=== PATIENT | female | born 1950 | race Caucasian/White ===

== ENCOUNTER 2018-02-11 20:27 | Inpatient (IN) | payer SELFPAY ==
[~2018-02-11] VITALS: Ht 154.9 cm; Wt 42.3 kg
--- NOTE | ~2018-02-11 | EKG ---
[place], [place] ELECTROCARDIOGRAM REPORT NAME: RADHA LUND UNIT #: [id number] ROOM: 403 DOCTOR: TRANG DRAFT REPORT BIRTHDATE: [birth year] [facility] Test Date: 2018-02-11 Test Time: 23:12:36 Pat Name: RADHA LUND Department: Room: 403 Gender: F Getterer: SONDRA : 1950 Requested By: HALINA MATA Order Number: [id number] Reading MD: Angel Maravilla MD Measurements Intervals [place] Rate: 79 P: 76 MD: 176 QRS: 33 QRSD: 70 T: 64 QT: 390 QTc: 448 Interpretive Statements Sinus rhythm Consider right atrial enlargement Borderline low voltage, extremity leads Electronically Signed On 02-12-2018 8:31:10 PDT by Agnel Maravilla MD CM:EKGRPT:ELECTROCARDIOGRAM REPORT 2312 [id number] HALINA STERN DRAFT REPORT HALINA MATA DO
--- NOTE | ~2018-02-11 | O ---
[place], [place] OPERATIVE NOTE NAME: RAD[facility] LUND [facility] #: [id number] UNIT #: [id number] ROOM: 403 DOCTOR: BOBO MATUTE DO BIRTHDATE: [birth year] DOS: 02/12/2018 PREOPERATIVE DIAGNOSIS: Right subcapital hip fracture. POSTOPERATIVE DIAGNOSIS: Right subcapital hip fracture. OPERATIVE PROCEDURE: Right subcapital hip fracture in situ fixation. SURGEON: Bobo Matute DO. BLOW MOLDING MACHINE TENDER: Eligio. ANESTHESIA: EDWIN Rizzo. Spinal. INDICATIONS: The patient is a 67-year-old female who was reported to have fallen at her home and suffered a right subcapital femoral neck fracture. The risks and benefits of the procedure were explained to the patient preoperatively. Preoperative labs and x-rays were obtained. Medical optimization was performed. The right hip was marked in the holding area. The patient was brought to the operative suite. Spinal anesthetic was performed by Anesthesia. The patient was placed supine on the fracture table. The right lower extremity was extended with minimal traction. The left lower extremity was flexed and externally rotated. The C-arm was utilized to evaluate the fracture site in multiple planes. The right lower extremity was prepped and draped in the usual orthopedic manner. A timeout was performed. The patient received clindamycin 900 mg IV piggyback. C-arm was used to identify the region just distal to the greater trochanter. The area was injected with Marcaine 0.5% with epinephrine. A 3 cm incision was made. Subcutaneous tissue was spread down to the level of the tensor fascia chantell. This was divided longitudinally as was the vastus lateralis. Under C-arm guidance, three partially threaded guidewires were placed from lateral to medial through the femoral neck and into the head. When this was found to be adequate, the lengths were measured of each guidewire. The guidewires were each overdrilled with a cannulated drill bit. This was followed by placement of three 7.3 mm cannulated screws, measuring 85 mm, 85 mm, 80 mm. When this was completed, C-arm images were obtained in multiple planes. The hip was taken through a range of motion. When this was adequate, the area was copiously irrigated with normal saline. The incision was closed with 0 Vicryl at the fascial layers followed by 2-0 Vicryl and skin brodie. The area was again injected with Marcaine 0.5% with epinephrine. Xeroform, 4 x 4s, and Tegaderm were applied as a dressing. The patient was returned to her hospital bed and taken to the recovery room in satisfactory condition. Sponge and needle count correct. ESTIMATED BLOOD LOSS: 25 mL. [place], [place] OPERATIVE NOTE NAME: RADHA LUND UNIT #: [id number] ROOM: [facility] DOCTOR: BOBO MATUTE DO BIRTHDATE: [birth year] FINDINGS: Subcapital fracture of the right femoral neck. IMPLANTS: Synthes 7.3 mm cannulated screws measuring 85 mm, 85 mm and 80 mm. COMPLICATIONS: None. SPECIMENS: None. DRAIN AND PACKING: None. BOBO MATUTE DO CM:OPRECORD:OPERATIVE NOTE 1415 [id number] BOBO MATUTE DO 02/25/18 0721 interface
[2018-02-11] MEDS ORDERED: CYMBALTA30 MG PO (20:51)
[2018-02-11] MEDS ORDERED: ULTRAM50 MG PO (20:52)
[2018-02-11] MEDS ORDERED: TIZANIDINE HCL4 MG PO (20:53)
[2018-02-11] MEDS ORDERED: NORVASC5 MG PO (20:53)
[2018-02-11] MEDS ORDERED: NEURONTIN300 MG PO (20:54)
[2018-02-11] MEDS ORDERED: LOPRESSOR50 M1 PO (20:54)
[2018-02-11] MEDS ORDERED: LOVASTATIN40 MG PO (20:55)
[2018-02-11 21:54] VITALS: BP 165/92
[2018-02-11 23:34] LABS: BASO % 0.3 % (0.0-1.0); EOS % 0.1 % (1.0-4.0); HEMATOCRIT 43.4 % (37.0-47.0); HEMOGLOBIN 14.5 g/dl (12.0-16.0); LYMPH # 1.3 10*3/uL (1.3-4.4); LYMPH % 10.7 % (27.0-41.0); MEAN CELL VOLUME 96.2 fl (81.0-99.0); MEAN CORPUSCULAR HGB 32.2 pg (27.0-31.0); MEAN CORPUSCULAR HGB CONC 33.4 g/dl (33.0-37.0); MEAN PLATELET VOLUME 9.2 fl (9.6-12.3); MONO # 0.5 10*3/uL (0.1-1.0); MONO % 3.8 % (3.0-9.0); NEUT % 84.8 % (47.0-73.0); PLATELET COUNT AUTOMATED 325 10*3/uL (130-400); RED BLOOD COUNT 4.51 10*6/uL (4.10-5.10); RED CELL DISTRI WIDTH 13.1 % (0-14.5); WHITE BLOOD COUNT 11.7 10*3/uL (4.8-10.8)
[2018-02-11 23:36] VITALS: BP 185/82
[2018-02-11 23:54] LABS: ALBUMIN 3.8 gm/dl (3.1-4.5); ALKALINE PHOSPHATASE 70 U/L (45-117); BUN 10 mg/dl (7-24); CHLORIDE 101 mmol/L (98-107); CREATININE 0.75 mg/dL (0.55-1.02); POTASSIUM 3.9 mmol/L (3.5-5.1); SGOT/AST 29 IU/L (3-35); SGPT/ALT 30 U/L (12-78); SODIUM 134 mmol/L (136-145); TOTAL PROTEIN 7.6 gm/dL (6.4-8.2)
[2018-02-11 23:55] LABS: TROPONIN I < 0.015 ng/ml (<0.045)
[2018-02-12] VITALS (10 sets, daily range): BP systolic 99–150; BP diastolic 38–90
[2018-02-12 05:02] LABS: BILIRUBIN NEGATIVE (NEGATIVE); BLOOD 3+ (NEGATIVE); CLARITY CLEAR (CLEAR); COLOR YELLOW (YELLOW); GLUCOSE NEGATIVE (NEGATIVE); KETONE 1+ (NEGATIVE); LEUKO ESTERASE TRACE (NEGATIVE); NITRITE NEGATIVE (NEGATIVE); PH 6.5 (5.0-9.0); SPECIFIC GRAVITY <= 1.005 (1.005-1.030); UROBILINOGEN 0.2 E.U./dl (0.2-1.0)
[2018-02-12 05:08] LABS: RBC TNTC rbc/hpf (0-2)
[2018-02-13] VITALS: BP 163/84
[2018-02-13 00:50] VITALS: BP 140/72
[2018-02-13 06:16] LABS: BASO % 0.2 % (0.0-1.0); EOS # 0.1 10*3/uL (0.0-0.4); EOS % 1.1 % (1.0-4.0); HEMATOCRIT 38.3 % (37.0-47.0); HEMOGLOBIN 12.5 g/dl (12.0-16.0); LYMPH # 1.6 10*3/uL (1.3-4.4); LYMPH % 20.2 % (27.0-41.0); MEAN CORPUSCULAR HGB 31.6 pg (27.0-31.0); MEAN CORPUSCULAR HGB CONC 32.6 g/dl (33.0-37.0); MEAN PLATELET VOLUME 9.7 fl (9.6-12.3); MONO # 0.7 10*3/uL (0.1-1.0); MONO % 8.4 % (3.0-9.0); NEUT # 5.7 10*3/uL (2.3-7.9); NEUT % 69.9 % (47.0-73.0); PLATELET COUNT AUTOMATED 302 10*3/uL (130-400); RED BLOOD COUNT 3.95 10*6/uL (4.10-5.10); RED CELL DISTRI WIDTH 13.2 % (0-14.5); WHITE BLOOD COUNT 8.1 10*3/uL (4.8-10.8)
[2018-02-13 06:37] LABS: BUN 9 mg/dl (7-24); CHLORIDE 104 mmol/L (98-107); POTASSIUM 3.5 mmol/L (3.5-5.1); SODIUM 138 mmol/L (136-145)
[2018-02-13 07:10] LABS: VITAMIN D, 25-HYDROXY 6.9 ng/mL (30-100)
[2018-02-13 07:20] LABS: CHOLESTEROL 124 mg/dL (<200); CREATININE 0.78 mg/dL (0.55-1.02); FREE T4 1.12 ng/dl (0.76-1.46); HDL CHOLESTEROL 50 mg/dl (40-60); LDL CHOLESTEROL 50 mg/dL (9-159); PHOSPHOROUS 3.2 mg/dL (2.5-4.9); TRIGLYCERIDES 118 mg/dl (<150); VLDL CHOLESTEROL 24 mg/dL (6-40)
[2018-02-13 08:00] VITALS: BP 138/60
[2018-02-13 12:00] VITALS: BP 102/63
[2018-02-13 16:00] VITALS: BP 141/69
[2018-02-13 20:00] VITALS: BP 100/70
[2018-02-14] VITALS: BP 114/65
[2018-02-14 06:45] LABS: BASO % 0.4 % (0.0-1.0); EOS # 0.3 10*3/uL (0.0-0.4); EOS % 4.7 % (1.0-4.0); HEMATOCRIT 35.7 % (37.0-47.0); HEMOGLOBIN 11.6 g/dl (12.0-16.0); LYMPH # 1.8 10*3/uL (1.3-4.4); MEAN CELL VOLUME 97.3 fl (81.0-99.0); MEAN CORPUSCULAR HGB 31.6 pg (27.0-31.0); MEAN CORPUSCULAR HGB CONC 32.5 g/dl (33.0-37.0); MEAN PLATELET VOLUME 9.5 fl (9.6-12.3); MONO # 0.7 10*3/uL (0.1-1.0); NEUT # 4.2 10*3/uL (2.3-7.9); NEUT % 58.8 % (47.0-73.0); PLATELET COUNT AUTOMATED 278 10*3/uL (130-400); RED BLOOD COUNT 3.67 10*6/uL (4.10-5.10); RED CELL DISTRI WIDTH 13.2 % (0-14.5); WHITE BLOOD COUNT 7.1 10*3/uL (4.8-10.8)
[2018-02-14 07:09] LABS: ALBUMIN 2.6 gm/dl (3.1-4.5); ALKALINE PHOSPHATASE 50 U/L (45-117); BUN 4 mg/dl (7-24); CHLORIDE 106 mmol/L (98-107); CREATININE 0.62 mg/dL (0.55-1.02); POTASSIUM 3.2 mmol/L (3.5-5.1); SGOT/AST 22 IU/L (3-35); SGPT/ALT 20 U/L (12-78); SODIUM 140 mmol/L (136-145); TOTAL PROTEIN 5.7 gm/dL (6.4-8.2)
[2018-02-14 08:00] VITALS: BP 119/62
[2018-02-14 12:00] VITALS: BP 106/56
[2018-02-14 16:00] VITALS: BP 127/62
[2018-02-14 20:00] VITALS: BP 139/70
[2018-02-15] VITALS: BP 100/69
[2018-02-15 06:12] LABS: BASO % 0.4 % (0.0-1.0); EOS # 0.5 10*3/uL (0.0-0.4); EOS % 6.1 % (1.0-4.0); HEMATOCRIT 35.6 % (37.0-47.0); HEMOGLOBIN 11.6 g/dl (12.0-16.0); LYMPH # 1.8 10*3/uL (1.3-4.4); LYMPH % 22.2 % (27.0-41.0); MEAN CELL VOLUME 97.3 fl (81.0-99.0); MEAN CORPUSCULAR HGB 31.7 pg (27.0-31.0); MEAN CORPUSCULAR HGB CONC 32.6 g/dl (33.0-37.0); MEAN PLATELET VOLUME 9.8 fl (9.6-12.3); MONO # 0.8 10*3/uL (0.1-1.0); MONO % 9.7 % (3.0-9.0); NEUT # 4.9 10*3/uL (2.3-7.9); NEUT % 61.3 % (47.0-73.0); PLATELET COUNT AUTOMATED 298 10*3/uL (130-400); RED BLOOD COUNT 3.66 10*6/uL (4.10-5.10); RED CELL DISTRI WIDTH 13.3 % (0-14.5); WHITE BLOOD COUNT 7.9 10*3/uL (4.8-10.8)
[2018-02-15 06:33] LABS: BUN 4 mg/dl (7-24); CHLORIDE 104 mmol/L (98-107); SODIUM 137 mmol/L (136-145)
[2018-02-15 06:34] LABS: CREATININE 0.59 mg/dL (0.55-1.02)
[2018-02-15 06:36] LABS: POTASSIUM 4.2 mmol/L (3.5-5.1)
[2018-02-15 08:00] VITALS: BP 144/65
[2018-02-15] MEDS ORDERED: VITAMIN D5000 UNI1 PO (11:17)
[2018-02-15] MEDS ORDERED: B12,B-12,B 12500 MC1 PO (11:17)
[2018-02-15] MEDS ORDERED: PHARMASSURE FO0.4 MG PO (11:17)
[2018-02-15] MEDS ORDERED: HYDROCODONE-AC1 EAC1 PO (11:17)
[2018-02-15 12:00] VITALS: BP 119/59
== END 2018-02-15 15:33 | disposition home or self-care (01) | DRG 481 ==
LOC: ED 20:27 → EDHOLD 22:53 → ED 22:53 → EDHOLD 23:11 → 4E 23:11 → EDHOLD 02-12 01:33 → 4E 02-12 01:38
PROVIDERS: Podiatrist Primary Podiatric Medicine; Student in an Organized Health Care Education/Training Program
PROC: 0QS604Z Reposition Right Upper Femur with Internal Fixation Device, Open Approach (ICD-10-PCS; principal; 2018-02-12)
DX: S72.011A Unspecified intracapsular fracture of right femur, initial encounter for closed fracture (principal); E87.1 Hypo-osmolality and hyponatremia; Z68.1 Body mass index [BMI] 19.9 or less, adult; G93.89 Other specified disorders of brain; M47.812 Spondylosis without myelopathy or radiculopathy, cervical region; R73.9 Hyperglycemia, unspecified; I73.9 Peripheral vascular disease, unspecified; F32.9 Major depressive disorder, single episode, unspecified; G62.9 Polyneuropathy, unspecified; E53.8 Deficiency of other specified B group vitamins; W18.39XA Other fall on same level, initial encounter; E78.5 Hyperlipidemia, unspecified; D72.0 Genetic anomalies of leukocytes; R63.6 Underweight; Z86.73 Personal history of transient ischemic attack (TIA), and cerebral infarction without residual deficits; I10 Essential (primary) hypertension; Z90.49 Acquired absence of other specified parts of digestive tract; Z90.710 Acquired absence of both cervix and uterus; Z72.0 Tobacco use; Z71.6 Tobacco abuse counseling; Z98.891 History of uterine scar from previous surgery; Z80.41 Family history of malignant neoplasm of ovary; Z82.49 Family history of ischemic heart disease and other diseases of the circulatory system; Y93.9 Activity, unspecified; Y92.098 Other place in other non-institutional residence as the place of occurrence of the external cause; Y99.8 Other external cause status

== ENCOUNTER → 2018-03-03 | Outpatient (CLI) | payer SELFPAY ==
[~2018-03-03] MED LIST: B12,B-12,B 12500 MC1 PO; CYMBALTA30 MG PO; HYDROCODONE-AC1 EAC1 PO; LOPRESSOR50 M1 PO; LOVASTATIN40 MG PO; NEURONTIN300 MG PO; NORVASC5 MG PO; PHARMASSURE FO0.4 MG PO; TIZANIDINE HCL4 MG PO; ULTRAM50 MG PO; VITAMIN D5000 UNI1 PO
== END | disposition home or self-care (01) ==
LOC: ORTHO 04:07
DX: S72.011D Unspecified intracapsular fracture of right femur, subsequent encounter for closed fracture with routine healing (principal); X58.XXXD Exposure to other specified factors, subsequent encounter

== ENCOUNTER 2019-12-04 19:07 | Emergency (ER) | payer MEDICARE ==
[~2019-12-04] VITALS: Ht 154.9 cm; Wt 38.6 kg
[2019-12-04 20:43] LABS: BASO % 0.2 % (0.0-1.0); EOS # 0.1 10*3/uL (0.0-0.4); EOS % 1.4 % (1.0-4.0); LYMPH # 1.8 10*3/uL (1.3-4.4); LYMPH % 19.7 % (27.0-41.0); MEAN CELL VOLUME 100.5 fl (81.0-99.0); MEAN CORPUSCULAR HGB 32.7 pg (27.0-31.0); MEAN CORPUSCULAR HGB CONC 32.5 g/dl (33.0-37.0); MEAN PLATELET VOLUME 9.8 fl (9.6-12.3); MONO # 0.6 10*3/uL (0.1-1.0); MONO % 6.8 % (3.0-9.0); NEUT # 6.5 10*3/uL (2.3-7.9); NEUT % 71.8 % (47.0-73.0); PLATELET COUNT AUTOMATED 290 10*3/uL (130-400); RED BLOOD COUNT 3.98 10*6/uL (4.10-5.10); RED CELL DISTRI WIDTH 14.2 % (0-14.5); WHITE BLOOD COUNT 9.1 10*3/uL (4.8-10.8)
[2019-12-04 21:05] LABS: ALBUMIN 3.6 gm/dl (3.1-4.5); ALKALINE PHOSPHATASE 55 U/L (45-117); BUN 10 mg/dl (7-24); CHLORIDE 101 mmol/L (98-107); CREATININE 0.86 mg/dL (0.55-1.02); LIPASE 211 U/L (73-393); POTASSIUM 4.1 mmol/L (3.5-5.1); SGOT/AST 23 IU/L (3-35); SGPT/ALT 24 U/L (12-78); SODIUM 135 mmol/L (136-145); TOTAL PROTEIN 6.7 gm/dL (6.4-8.2)
[2019-12-04 21:08] LABS: TROPONIN I < 0.015 ng/ml (<0.045)
[2019-12-04] MEDS ORDERED: NORCO 5-325 TA1 EACH PO (21:33)
[2019-12-04 21:38] LABS: ACT PARTIAL THROMBO TIME 26.6 SECONDS (20.0-32.1); INTERNATIONAL NORM RATIO 0.9 (2.0-3.5)
== END 2019-12-04 22:15 | disposition home or self-care (01) ==
LOC: ED 19:07
PROVIDERS: Emergency Medicine Emergency Medical Services
DX: S42.92XA Fracture of left shoulder girdle, part unspecified, initial encounter for closed fracture (principal); R42 Dizziness and giddiness; R55 Syncope and collapse; I10 Essential (primary) hypertension; F32.9 Major depressive disorder, single episode, unspecified; E78.5 Hyperlipidemia, unspecified; E78.00 Pure hypercholesterolemia, unspecified; F17.200 Nicotine dependence, unspecified, uncomplicated; Z79.899 Other long term (current) drug therapy; W19.XXXA Unspecified fall, initial encounter; Y93.89 Activity, other specified; Y92.89 Other specified places as the place of occurrence of the external cause; Y99.8 Other external cause status

== ENCOUNTER 2020-07-12 18:20 | Inpatient (IN) | payer MEDICARE, MEDICAID ==
[~2020-07-12] VITALS: Ht 162.6 cm; Wt 39.9 kg
[~2020-07-12 18:20] MED LIST changes: +NORCO 5-325 TA1 EACH PO
[2020-07-12 18:24] VITALS: BP 127/50
[2020-07-12 20:53] LABS: BASO % 0.3 % (0.0-1.0); EOS # 0.1 10*3/uL (0.0-0.4); EOS % 0.4 % (1.0-4.0); HEMATOCRIT 39.8 % (37.0-47.0); LYMPH # 1.5 10*3/uL (1.3-4.4); MEAN CELL VOLUME 96.6 fl (81.0-99.0); MEAN CORPUSCULAR HGB 31.8 pg (27.0-31.0); MEAN CORPUSCULAR HGB CONC 32.9 g/dl (33.0-37.0); MEAN PLATELET VOLUME 8.7 fl (9.6-12.3); MONO # 1.1 10*3/uL (0.1-1.0); MONO % 8.2 % (3.0-9.0); NEUT % 79.5 % (47.0-73.0); PLATELET COUNT AUTOMATED 413 10*3/uL (130-400); RED BLOOD COUNT 4.12 10*6/uL (4.10-5.10); RED CELL DISTRI WIDTH 13.2 % (0-14.5); WHITE BLOOD COUNT 13.9 10*3/uL (4.8-10.8)
[2020-07-12 21:10] LABS: ALBUMIN 2.6 gm/dl (3.1-4.5); ALKALINE PHOSPHATASE 85 U/L (45-117); BUN 10 mg/dl (7-24); CHLORIDE 95 mmol/L (98-107); CREATININE 0.81 mg/dL (0.55-1.02); POTASSIUM 4.1 mmol/L (3.5-5.1); SGOT/AST 12 IU/L (3-35); SGPT/ALT 9 U/L (12-78); SODIUM 129 mmol/L (136-145); TOTAL PROTEIN 6.5 gm/dL (6.4-8.2)
[2020-07-13] VITALS: BP 169/87
[2020-07-13 00:06] VITALS: BP 148/68
[2020-07-13 07:03] LABS: BASO % 0.3 % (0.0-1.0); EOS # 0.1 10*3/uL (0.0-0.4); EOS % 0.9 % (1.0-4.0); HEMATOCRIT 38.5 % (37.0-47.0); LYMPH # 1.9 10*3/uL (1.3-4.4); LYMPH % 14.8 % (27.0-41.0); MEAN CELL VOLUME 96.7 fl (81.0-99.0); MEAN CORPUSCULAR HGB 31.7 pg (27.0-31.0); MEAN CORPUSCULAR HGB CONC 32.7 g/dl (33.0-37.0); MONO # 1.1 10*3/uL (0.1-1.0); MONO % 8.5 % (3.0-9.0); NEUT # 9.8 10*3/uL (2.3-7.9); PLATELET COUNT AUTOMATED 408 10*3/uL (130-400); RED BLOOD COUNT 3.98 10*6/uL (4.10-5.10); RED CELL DISTRI WIDTH 13.1 % (0-14.5)
[2020-07-13 07:19] LABS: ALBUMIN 2.4 gm/dl (3.1-4.5); ALKALINE PHOSPHATASE 83 U/L (45-117); BUN 9 mg/dl (7-24); CHLORIDE 98 mmol/L (98-107); CHOLESTEROL 124 mg/dL (<200); FREE T4 1.48 ng/dl (0.76-1.46); HDL CHOLESTEROL 65 mg/dl (40-60); LDL CHOLESTEROL 44 mg/dL (9-159); POTASSIUM 3.6 mmol/L (3.5-5.1); SGOT/AST 12 IU/L (3-35); SGPT/ALT 10 U/L (12-78); SODIUM 132 mmol/L (136-145); TOTAL PROTEIN 6.5 gm/dL (6.4-8.2); TRIGLYCERIDES 75 mg/dl (<150); VLDL CHOLESTEROL 15 mg/dL (6-40)
[2020-07-13 08:00] VITALS: BP 190/86
[2020-07-13 12:00] VITALS: BP 183/85
[2020-07-13 16:00] VITALS: BP 192/78
[2020-07-13 20:00] VITALS: BP 194/83
== END 2020-07-13 20:45 | disposition short-term general hospital (02) | DRG 300 ==
LOC: ED 18:20 → 5E 22:45 → EDHOLD 22:45 → 5E 23:52
PROVIDERS: Emergency Medicine; Internal Medicine; ADMIT Internal Medicine; ATTEND Internal Medicine
DX: I96 Gangrene, not elsewhere classified (principal); E87.1 Hypo-osmolality and hyponatremia; E44.0 Moderate protein-calorie malnutrition; Z68.1 Body mass index [BMI] 19.9 or less, adult; L08.9 Local infection of the skin and subcutaneous tissue, unspecified; E87.8 Other disorders of electrolyte and fluid balance, not elsewhere classified; D72.829 Elevated white blood cell count, unspecified; D47.3 Essential (hemorrhagic) thrombocythemia; M47.812 Spondylosis without myelopathy or radiculopathy, cervical region; F32.9 Major depressive disorder, single episode, unspecified; Z60.2 Problems related to living alone; M19.90 Unspecified osteoarthritis, unspecified site; I10 Essential (primary) hypertension; E78.5 Hyperlipidemia, unspecified; G62.9 Polyneuropathy, unspecified; M47.892 Other spondylosis, cervical region; F17.200 Nicotine dependence, unspecified, uncomplicated; E55.9 Vitamin D deficiency, unspecified; M85.871 Other specified disorders of bone density and structure, right ankle and foot; M85.872 Other specified disorders of bone density and structure, left ankle and foot; L97.529 Non-pressure chronic ulcer of other part of left foot with unspecified severity; L89.510 Pressure ulcer of right ankle, unstageable; Z90.49 Acquired absence of other specified parts of digestive tract; Z90.711 Acquired absence of uterus with remaining cervical stump; Z80.41 Family history of malignant neoplasm of ovary; Z82.49 Family history of ischemic heart disease and other diseases of the circulatory system; Z86.73 Personal history of transient ischemic attack (TIA), and cerebral infarction without residual deficits; L89.890 Pressure ulcer of other site, unstageable

== ENCOUNTER → 2020-10-10 | Outpatient (CLI) | payer MEDICARE, MEDICAID ==
[2020-10-10] VITALS (8 sets, daily range): BP systolic 100–137; BP diastolic 45–77
== END | disposition home or self-care (01) ==
LOC: TRNFUSION 09:00
PROVIDERS: ATTEND Internal Medicine
DX: D64.9 Anemia, unspecified (principal); I10 Essential (primary) hypertension; F32.9 Major depressive disorder, single episode, unspecified; E78.00 Pure hypercholesterolemia, unspecified; I73.9 Peripheral vascular disease, unspecified; Z86.73 Personal history of transient ischemic attack (TIA), and cerebral infarction without residual deficits